=== PATIENT | female | born 1975 | race African-American/Black ===

== ENCOUNTER 2021-01-11 19:16 | Emergency (ER) | payer OTHER ==
[2021-01-12 11:47] LABS: SARS-CoV-2 PCR by NAA Not Detected (NotDetected)
== END 2021-01-11 19:42 | disposition home or self-care (01) ==
LOC: BURERS 19:16
DX: Z20.822 Contact with and (suspected) exposure to COVID-19 (principal)
CPT/HCPCS: 99283; U0003; U0005

== ENCOUNTER 2021-01-22 19:06 | Emergency (ER) | payer OTHER ==
[2021-01-22 21:14] LABS: Hemoglobin 12.9 g/dL (12.0-16.0); Mean Corpuscular HGB CONC 32.2 g/dL (32.0-36.0); Mean Corpuscular Hemoglobin 28.6 pg (27.0-31.0); Mean Corpuscular Volume 88.6 fL (78.0-98.0); Mean Platelet Volume 6.4 fL (7.4-10.4); Platelet Count 241 thou/uL (130-400); RBC Distribution Width 13.9 % (11.5-14.5); Red Blood Cell (RBC) Count 4.51 mill/uL (4.20-5.40); White Blood Cell (WBC) Count 3.1 thou/uL (4.8-10.8)
[2021-01-22 21:24] LABS: Bilirubin Negative (Negative); Blood, Urine Large (Negative); Clarity Slightly Cloudy (Clear); Glucose, Urine (Dipstick) Negative (Negative); Ketone, Urine Trace mg/dL (Negative); Leukocyte Negative (Negative); Nitrite Negative (Negative); Protein, Urine (Dipstick) 30 mg/dL (Neg-Trace); Specific Gravity, Urine 1.025 (1.005-1.030); pH, Urine 6.5 (5.0-9.0)
[2021-01-22 21:26] LABS: ALT (SGPT) 26 U/L (8-55); AST (SGOT) 36 U/L (5-34); Albumin 4.1 g/dL (3.5-5.0); Alkaline Phosphatase 99 U/L (40-110); Anion Gap 16 mmol/L (10-20); BUN (Urea Nitrogen) 8 mg/dL (7.0-18.7); Bilirubin, Total 0.3 mg/dL (0.2-1.2); Calc. Creatinine Clearance 0 mL/min (70-130); Calcium 8.7 mg/dL (7.8-10.44); Carbon Dioxide 21 mmol/L (22-29); Chloride 107 mmol/L (98-107); Globulin 3.6 g/dL (2.4-3.5); Glucose 99 mg/dL (70-105); Potassium 3.5 mmol/L (3.5-5.1); Protein, Total 7.7 g/dL (6.0-8.3); Sodium 140 mmol/L (136-145)
[2021-01-22 21:32] LABS: Bacteria/HPF 3+ HPF (None Seen); RBC/HPF Greater than 50 HPF (0-3); WBC/HPF 0-3 HPF (0-3)
[2021-01-22 21:44] LABS: Band 2 % (5-11); Lymphocytes 48 % (21-51); MDiff Complete? YES; Monocytes 9 % (0-10); Neutrophil 41 % (42-75); Platelet Morphology Comment Appears Adequate; RBC Morphology Normal
[2021-01-23 16:16] LABS: SARS-CoV-2 PCR by NAA DETECTED (NotDetected)
== END 2021-01-22 21:50 | disposition home or self-care (01) ==
LOC: BURERS 19:06
DX: U07.1 COVID-19 (principal); J12.82 Pneumonia due to coronavirus disease 2019
CPT/HCPCS: 71045; 80053; 81003; 81015; 85025; U0003; U0005

== ENCOUNTER 2024-05-16 18:22 | Emergency (ER) | payer OTHER ==
[2024-05-16] MEDS ORDERED: Lidocaine 1%/Epinephrine 1:100K 10 ML VIAL ONE (18:29)
[2024-05-16] MEDS ORDERED: Clindamycin 150 MG CAP ONE (19:02)
[2024-05-16] MEDS ORDERED: Ibuprofen 200 MG TAB ONE (19:02)
[2024-05-16] MEDS ORDERED: Acetaminophen 500 MG TAB ONE (19:02)
[2024-05-16] MEDS ORDERED: Boostrix 0.5 ML (Tdap) VIAL (>/=7 yrs of age) ONE (19:25)
== END 2024-05-16 19:44 | disposition home or self-care (01) ==
LOC: BURERS 18:22
DX: L02.412 Cutaneous abscess of left axilla (principal)
CPT/HCPCS: 10060; 90471; 90715